=== PATIENT | female | born 1945 | race Hispanic/Latino ===

== ENCOUNTER 2019-07-24 14:13 | Outpatient (CLI) | payer MEDICARE, OTHER ==
--- NOTE | 2019-07-24 15:21 | BD ---
Exam: DEXA Bone Density 07/24/19 HISTORY: Postmenopausal screening for osteoporosis. FINDINGS: Lumbar Spine: BMD (g/cm2) T-SCORE Z-SCORE L1 0.719 -2.5 -0.4 L2 0.805 -2.0 0.2 L3 0.815 -2.4 0.0 L4 0.935 -1.1 1.3 L1-L4 0.832 -2.0 0.4 Femoral Neck: 0.723 -1.1 0.7 Total Femur: 0.947 0.0 1.6 Impression: Osteopenia. POS: [facility]
== END 2019-07-24 14:14 | disposition home or self-care (01) ==
LOC: BICMAMMO 14:13
PROVIDERS: ATTEND Hospitalist
DX: M85.89 Other specified disorders of bone density and structure, multiple sites (principal)
CPT/HCPCS: 77080

== ENCOUNTER 2020-04-20 09:27 | Emergency (ER) | payer MEDICARE, MEDICAID ==
[2020-04-20 10:52] LABS: #Basophils 0.1 thou/uL (0.0-0.2); #Eosinphils 0.1 thou/uL (0.0-0.7); #Lymphocytes 1.7 thou/uL (1.20-3.40); #Monocytes 0.6 thou/uL (0.11-0.59); #Neutrophils 8.5 thou/uL (1.40-6.50); %Basophils 0.5 % (0.0-1.0); %Eosinophils 1.1 % (0.0-10.0); %Lymphocytes 15.1 % (21.0-51.0); %Monocytes 5.8 % (0.0-10.0); %Neutrophils 77.5 % (42.0-75.0); Hemoglobin 11.9 g/dL (12.0-16.0); Mean Corpuscular HGB CONC 35.1 g/dL (32.0-36.0); Mean Corpuscular Hemoglobin 32.6 pg (27.0-31.0); Mean Corpuscular Volume 92.6 fL (78.0-98.0); Mean Platelet Volume 9.8 fL (7.4-10.4); Platelet Count 155 thou/uL (130-400); RBC Distribution Width 11.8 % (11.5-14.5); Red Blood Cell (RBC) Count 3.67 mill/uL (4.20-5.40)
[2020-04-20 11:19] LABS: ALT (SGPT) 10 U/L (8-55); AST (SGOT) 12 U/L (5-34); Albumin 4.1 g/dL (3.4-4.8); Alkaline Phosphatase 66 U/L (40-110); Anion Gap 15 mmol/L (10-20); BUN (Urea Nitrogen) 16 mg/dL (9.8-20.1); Bilirubin, Total 0.4 mg/dL (0.2-1.2); Calc. Creatinine Clearance 0 mL/min (70-130); Calcium 9.2 mg/dL (7.8-10.44); Carbon Dioxide 23 mmol/L (23-31); Chloride 99 mmol/L (98-107); Glucose 172 mg/dL (83-110); Lipase 34 U/L (8-78); Potassium 3.7 mmol/L (3.5-5.1); Protein, Total 7.1 g/dL (5.8-8.1); Sodium 133 mmol/L (136-145)
[2020-04-20 12:52] LABS: Bacteria/HPF 4+ HPF (None Seen); Bilirubin Negative (Negative); Blood, Urine 3+ (Negative); Clarity Extra Turbid (Clear); Glucose, Urine (Dipstick) 70 mg/dL (Negative); Ketone, Urine Negative (Negative); Leukocyte 500 Leu/uL (Negative); Nitrite Negative (Negative); Protein, Urine (Dipstick) 50 mg/dL (Neg-Trace); RBC/HPF Greater than 50 HPF (0-3); Specific Gravity, Urine 1.014 (1.002-1.036); Squamous Epithelial None Seen HPF (0-3); Urobilinogen Normal mg/dL (Less than 2); WBC/HPF Greater than 50 HPF (0-3); pH, Urine 7.5 (5.0-9.0)
[2020-04-20] MEDS ORDERED: cefTRIAXone\\ROCEPHIN 1 GM VIAL ONE (13:39)
== END 2020-04-20 14:32 | disposition home or self-care (01) ==
LOC: ERS 09:27
DX: N12 Tubulo-interstitial nephritis, not specified as acute or chronic (principal); K21.9 Gastro-esophageal reflux disease without esophagitis; I10 Essential (primary) hypertension; Z79.84 Long term (current) use of oral hypoglycemic drugs; Z79.899 Other long term (current) drug therapy
CPT/HCPCS: 74176; 80053; 81003; 81015; 83690; 85025; 87086; 96365; J0696

== ENCOUNTER 2020-06-06 18:19 | Observation (INO) | payer MEDICARE, MEDICAID ==
[2020-06-06 19:40] LABS: #Basophils 0.1 thou/uL (0.0-0.2); #Eosinphils 0.2 thou/uL (0.0-0.7); #Monocytes 0.5 thou/uL (0.11-0.59); #Neutrophils 3.5 thou/uL (1.40-6.50); %Basophils 1.2 % (0.0-1.0); %Eosinophils 2.8 % (0.0-10.0); %Lymphocytes 31.8 % (21.0-51.0); %Monocytes 8.2 % (0.0-10.0); %Neutrophils 56.1 % (42.0-75.0); Hemoglobin 11.2 g/dL (12.0-16.0); Mean Corpuscular HGB CONC 33.4 g/dL (32.0-36.0); Mean Corpuscular Hemoglobin 32.1 pg (27.0-31.0); Mean Corpuscular Volume 96.1 fL (78.0-98.0); Mean Platelet Volume 10.4 fL (7.4-10.4); Platelet Count 136 thou/uL (130-400); RBC Distribution Width 12.5 % (11.5-14.5); Red Blood Cell (RBC) Count 3.49 mill/uL (4.20-5.40); White Blood Cell (WBC) Count 6.3 thou/uL (4.8-10.8)
[2020-06-06] MEDS ORDERED: Aspirin Chewable 81 MG TAB ONE (19:54)
[2020-06-06 20:05] LABS: ALT (SGPT) 13 U/L (8-55); AST (SGOT) 13 U/L (5-34); Albumin 4.1 g/dL (3.4-4.8); Alkaline Phosphatase 63 U/L (40-110); Anion Gap 11 mmol/L (10-20); BUN (Urea Nitrogen) 11 mg/dL (9.8-20.1); Bilirubin, Total 0.3 mg/dL (0.2-1.2); Calc. Creatinine Clearance 0 mL/min (70-130); Calcium 8.8 mg/dL (7.8-10.44); Carbon Dioxide 25 mmol/L (23-31); Chloride 107 mmol/L (98-107); Globulin 2.9 g/dL (2.4-3.5); Glucose 145 mg/dL (83-110); Potassium 3.6 mmol/L (3.5-5.1); Sodium 139 mmol/L (136-145)
[2020-06-06 20:45] LABS: Bilirubin Negative (Negative); Blood, Urine Negative (Negative); Clarity Clear (Clear); Glucose, Urine (Dipstick) Normal (Negative); Ketone, Urine Negative (Negative); Leukocyte Negative Leu/uL (Negative); Nitrite Negative (Negative); Protein, Urine (Dipstick) Negative (Neg-Trace); Specific Gravity, Urine 1.003 (1.002-1.036); Urobilinogen Normal mg/dL (Less than 2)
[2020-06-06] MEDS ORDERED: Acetaminophen 325 MG TAB PO PRN (21:52)
[2020-06-06] MEDS ORDERED: Dextrose 5% in Water 1,000 ML IV PRN (21:52)
[2020-06-06] MEDS ORDERED: Dextrose 50% Abboject 50 ML SYRINGE SLOW IVP PRN (21:52)
[2020-06-06] MEDS ORDERED: Ondansetron ODT 4 MG TAB PO PRN (21:52)
[2020-06-06] MEDS ORDERED: HumaLOG 300 UNITS/3 ML VIAL SC PRN ×2 (21:53)
[2020-06-06 23:20] VITALS: BMI 27.0
[2020-06-07 00:10] LABS: Hemoglobin A1c 5.5 % (4.0-6.0)
[2020-06-07 00:23] LABS: Magnesium 1.9 mg/dL (1.6-2.6); Phosphorus 2.6 mg/dL (2.3-4.7)
[2020-06-07 00:27] LABS: Troponin I Less than 0.010 ng/mL (< 0.028)
[2020-06-07 02:59] LABS: SARS-CoV-2 NAA Rapid Test Not Detected (NotDetected)
[2020-06-07 04:46] LABS: #Basophils 0.1 thou/uL (0.0-0.2); #Eosinphils 0.2 thou/uL (0.0-0.7); #Lymphocytes 1.8 thou/uL (1.20-3.40); #Monocytes 0.6 thou/uL (0.11-0.59); #Neutrophils 4.3 thou/uL (1.40-6.50); %Basophils 0.8 % (0.0-1.0); %Eosinophils 2.9 % (0.0-10.0); %Lymphocytes 25.8 % (21.0-51.0); %Neutrophils 62.5 % (42.0-75.0); Hemoglobin 10.5 g/dL (12.0-16.0); Mean Corpuscular HGB CONC 33.7 g/dL (32.0-36.0); Mean Corpuscular Hemoglobin 32.4 pg (27.0-31.0); Mean Corpuscular Volume 96.2 fL (78.0-98.0); Mean Platelet Volume 10.3 fL (7.4-10.4); Platelet Count 120 thou/uL (130-400); RBC Distribution Width 12.6 % (11.5-14.5); Red Blood Cell (RBC) Count 3.25 mill/uL (4.20-5.40); White Blood Cell (WBC) Count 6.8 thou/uL (4.8-10.8)
[2020-06-07 05:06] LABS: Anion Gap 11 mmol/L (10-20); BUN (Urea Nitrogen) 8 mg/dL (9.8-20.1); Calc. Creatinine Clearance 90 mL/min (70-130); Calcium 8.4 mg/dL (7.8-10.44); Carbon Dioxide 23 mmol/L (23-31); Cardiac Risk 2.8 (Less than 4.5); Chloride 112 mmol/L (98-107); Cholesterol 114 mg/dl (< 200 Desired); Glucose 149 mg/dL (83-110); HDL Cholesterol 41 mg/dL (>60 Neg Risk); LDL Cholesterol, Calculated 56 mg/dL; Potassium 3.5 mmol/L (3.5-5.1); Sodium 142 mmol/L (136-145); Triglycerides 86 mg/dL (Less than 150)
[2020-06-07] MEDS ORDERED: metFORMIN XR 500 MG TAB PO SCH (08:00)
[2020-06-07] MEDS: Gabapentin 300 MG CAP PO SCH ×2 (08:07→15:51)
[2020-06-07] MEDS ORDERED: Fluticasone Propionate Nasal Spray 16 gm Bottle NASAL SCH (09:00)
[2020-06-07] MEDS ORDERED: Folic Acid 1 MG TAB PO SCH (09:00)
[2020-06-07] MEDS ORDERED: Calcium Carbonate 600 MG + Vit D TAB PO SCH (09:00)
[2020-06-07] MEDS ORDERED: Losartan 25 MG TAB PO SCH (09:00)
[2020-06-07] MEDS ORDERED: Dicyclomine 10 MG CAP PO SCH (09:00)
[2020-06-07] MEDS ORDERED: Enoxaparin Sodium 40 MG/0.4 ML SYRINGE SC SCH (09:00)
[2020-06-07] MEDS ORDERED: Azelastine 137 MCG/Spray 30 ML NS SCH (09:00)
[2020-06-07] MEDS ORDERED: ADENOSINE 60 MG/20 ML VIAL ONE (11:01)
[2020-06-07 16:03] VITALS: BP 136/63; TEMP 98.5
[2020-06-07] MEDS ORDERED: Amitriptyline HCl 25 MG TAB PO SCH (21:00)
== END 2020-06-07 18:30 | disposition home or self-care (01) ==
LOC: ERS 18:19 → 2NO 20:31
PROVIDERS: ADMIT Family Medicine; ATTEND Family Medicine
DX: R07.89 Other chest pain (principal); R51.9 Headache, unspecified; R68.84 Jaw pain; R53.1 Weakness; R42 Dizziness and giddiness; I10 Essential (primary) hypertension; E11.9 Type 2 diabetes mellitus without complications; K21.9 Gastro-esophageal reflux disease without esophagitis; M19.90 Unspecified osteoarthritis, unspecified site; E78.5 Hyperlipidemia, unspecified; Z79.84 Long term (current) use of oral hypoglycemic drugs; Z79.899 Other long term (current) drug therapy; Z20.822 Contact with and (suspected) exposure to COVID-19
CPT/HCPCS: 71045; 78452; 80048; 80061; 81003; 82962; 83036; 83735; 83880; 84100; 84484 ×2; 85025; 85652; 87086; 93005; 93017; 96372; 97139 ×2; 99285; A9500; G0378 ×3; U0002; 36415; 36416; 80053; 84443; 87635; J0153; J1650; U0003; U0005

== ENCOUNTER 2020-09-26 11:34 | Outpatient (CLI) | payer MEDICARE, MEDICAID | END 2020-09-26 11:35 | disposition home or self-care (01) | LOC: BICMAMMO 11:34 | PROVIDERS: ATTEND Family Medicine | DX: Z12.31 Encounter for screening mammogram for malignant neoplasm of breast (principal) | CPT/HCPCS: 77063; 77067 ==

== ENCOUNTER 2021-01-14 14:37 | Outpatient (CLI) | payer MEDICARE, MEDICAID | END 2021-01-14 14:38 | disposition home or self-care (01) | LOC: BICCT 14:37 | PROVIDERS: ATTEND Student in an Organized Health Care Education/Training Program | DX: R05.8 Other specified cough (principal); R91.8 Other nonspecific abnormal finding of lung field | CPT/HCPCS: 71250 ==